=== PATIENT | female | born 2000 | race American Indian/Alaskan Native ===

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

== ENCOUNTER 2019-01-25 20:32 | Emergency (ER) | payer OTHER ==
--- NOTE | 2019-01-25 20:53 | Emergency Department Report ---
Blank Doc - Documentation Documentation: This is a 18-year-old female that presents with chest pain and SOB. This initial assessment/diagnostic orders/clinical plan/treatment(s) is/are subject to change based on patient's health status, clinical progression and re- assessment by fellow clinical providers in the ED. Further treatment and workup at subsequent clinical providers discretion. Patient/guardians urged not to elope from the ED as their condition may be serious if not clinically assessed and managed. Initial orders include: 1- Patient sent to [facility] for further evaluation and treatment 2- EKG 3- labs 4- CXR
[2019-01-25 21:16] LABS: Hematocrit 36.9 % (30.3-42.9); Hemoglobin 12.4 gm/dl (10.1-14.3); Mean Corpuscular HGB Conc 34 % (30-34); Mean Corpuscular Volume 86 fl (79-97); Platelet Count 324 K/mm3 (140-440); Red Blood Count 4.27 M/mm3 (3.65-5.03); Red Cell Distribution Width 14.2 % (13.2-15.2)
[2019-01-25 21:26] LABS: INR 0.92 (0.87-1.13)
[2019-01-25 21:34] LABS: BUN/Creatinine Ratio 14; Blood Urea Nitrogen 11 mg/dL (7-17); Calcium 9.1 mg/dL (8.4-10.2); Hemolysis Index 48
[2019-01-25 22:13] LABS: Band Neutrophils # (Manual) 0.1 K/mm3; Eosinophils % (Manual) 0 % (0.0-4.3); Platelet Estimate Consistent w Auto; RBC Morphology Normal; Total Cells Counted 100
--- NOTE | 2019-01-25 22:51 | XRay Report ---
PROCEDURE: XR CHEST ROUTINE 2V TECHNIQUE: PA and lateral chest radiographs were obtained. HISTORY: Chest Pain COMPARISONS: None. FINDINGS: Heart: Normal. Mediastinum/Vessels: Normal. Lungs/Pleural space: Normal. Bony thorax: No acute osseous abnormality. IMPRESSION: Normal examination. This document is electronically signed by Deyvi Santos MD., January 25 2019 10:49:57 PM ET
--- NOTE | 2019-01-26 02:21 | Emergency Department Report ---
ED Chest Pain HPI - General Chief Complaint: Chest Pain Stated Complaint: CHEST PAIN LEFT ARM SHOOTING PAIN Time Seen by Provider: 01/25/19 20:51 Source: patient Mode of arrival: Ambulatory Limitations: No Limitations - History of Present Illness Initial Comments: 18-year-old female presents to the ED for complaint of chest pain since yesterday. Patient states pain has been right and left-sided, radiating into bilateral arms, with associated mild shortness of breath. Denies fever, cough, nausea, vomiting, diaphoresis, leg pain or swelling. No aggravating or alleviating factors, pain is intermittent. MD Complaint: chest pain -: days(s) (2) Onset: during rest, during exertion Pain Location: substernal, left chest, right chest Pain Radiation: RUE, LUE Severity: moderate Severity scale (0 -10): 5 Quality: tightness, sharp Improves With: nothing Worsens With: nothing re: denies: nausea, vomting, diaphoresis, dyspnea Other Symptoms: denies: cough, fever, leg swelling - Related Data Previous Rx's Medication Instructions Recorded Last Taken Type Prochlorperazine [Compazine] 10 mg PO Q8HR #30 tablet 07/03/17 Unknown Rx Pseudoephedrine ER [Sudafed 12 Hr] 120 mg PO Q12HR PRN #24 tablet 07/03/17 Unknown Rx Naproxen [Naprosyn] 500 mg PO BID #20 tablet 01/26/19 Unknown Rx Allergies Allergy/AdvReac Type Severity Reaction Status Date / Time No Known Allergies Allergy Verified 01/25/19 20:37 Heart Score - HEART Score History: Slightly suspicious EKG: Normal Age: < 45 Risk factors: 1-2 risk factors Troponin: < normal limit HEART Score: 1 ED Review of Systems ROS: Stated complaint: CHEST PAIN LEFT ARM SHOOTING PAIN Other details as noted in HPI Comment: All other systems reviewed and negative Constitutional: denies: chills, fever Respiratory: shortness of breath. denies: cough Cardiovascular: chest pain Gastrointestinal: denies: nausea, vomiting Musculoskeletal: other (denies leg pain or swelling) ED Past Medical Hx - Social History Smoking Status: Current Every Day Smoker Substance Use Type: None - Medications Home Medications: Home Medications Medication Instructions Recorded Confirmed Last Taken Type Prochlorperazine [Compazine] 10 mg PO Q8HR #30 tablet 07/03/17 Unknown Rx Pseudoephedrine ER [Sudafed 12 Hr] 120 mg PO Q12HR PRN #24 tablet 07/03/17 Unknown Rx Naproxen [Naprosyn] 500 mg PO BID #20 tablet 01/26/19 Unknown Rx ED Physical Exam - General Limitations: No Limitations General appearance: alert, in no apparent distress, obese - Head Head exam: Present: atraumatic, normocephalic - Eye Eye exam: Present: normal appearance - ENT ENT exam: Present: mucous membranes moist - Neck Neck exam: Present: normal inspection - Respiratory Respiratory exam: Present: normal lung sounds bilaterally, chest wall tende rness. Absent: respiratory distress - Cardiovascular Cardiovascular Exam: Present: regular rate, normal rhythm - GI/Abdominal GI/Abdominal exam: Present: soft. Absent: distended, tenderness - Extremities Exam Extremities exam: Absent: pedal edema, calf tenderness - Neurological Exam Neurological exam: Present: alert, oriented X3 - Psychiatric Psychiatric exam: Present: normal affect, normal mood - Skin Skin exam: Present: warm, dry, intact, normal color. Absent: rash ED Course Vital Signs 01/25/19 01/25/19 01/26/19 20:43 20:51 01:15 Temperature 98.3 F 98.3 F Pulse Rate 100 H 117 H 77 Respiratory 18 18 20 Rate Blood Pressure 141/117 141/117 Blood Pressure 121/61 [Left] O2 Sat by Pulse 100 100 98 Oximetry 01/26/19 01/26/19 03:00 03:28 Temperature Pulse Rate 75 Respiratory 20 20 Rate Blood Pressure Blood Pressure 114/76 [Left] O2 Sat by Pulse 99 98 Oximetry ED Medical Decision Making - Lab Data Result diagrams: 01/25/19 20:58 01/25/19 20:58 - EKG Data -: EKG Interpreted by Fl EKG shows normal: sinus rhythm, axis, intervals, QRS complexes, ST-T waves Rate: normal - EKG Data Interpretation: no acute changes - Radiology Data Radiology results: report reviewed, image reviewed - Medical Decision Making - chest pain across entire chest radiating into bilateral arms - EKG normal, no ST changes - trop negative x 2 - d-dimer also negative - vitals normal - chest pain seems atypical in nature; also has some chest wall tenderness, will give rx for naprosyn - advised PCP f/u - return precautions given - Differential Diagnosis chest wall pain, ACS, PE, pneumonia Critical care attestation.: If time is entered above; I have spent that time in minutes in the direct care of this critically ill patient, excluding procedure time. ED Disposition Clinical Impression: Chest pain Disposition: TO HOME OR SELFCARE Is pt being admited?: No Condition: Stable Instructions: Chest Pain (ED) Prescriptions: Naproxen [Naprosyn] 500 mg PO BID #20 tablet Referrals: MALIK JEFFERY NP [Primary Care Provider] - 3-5 Days Time of Disposition: 03:01
[2019-01-26 04:03] VITALS: BP 114/76
== END 2019-01-26 04:03 | disposition home or self-care (01) ==
LOC: ED 20:32
DX: R07.89 Other chest pain (principal); R06.02 Shortness of breath; F17.200 Nicotine dependence, unspecified, uncomplicated; Z79.899 Other long term (current) drug therapy
CPT/HCPCS: 36415; 71046; 80048; 84484; 84703; 85007; 85025; 85379; 85610; 85730; 93005; 93010

== ENCOUNTER 2019-05-17 10:11 | Emergency (ER) | payer OTHER ==
[2019-05-17 11:17] VITALS: BP 121/74
--- NOTE | 2019-05-17 11:43 | Emergency Department Report ---
ED General Adult HPI - General Chief complaint: Upper Respiratory Infection Stated complaint: FLU LIKE SYM Time Seen by Provider: 05/17/19 11:25 Source: patient Mode of arrival: Ambulatory Limitations: No Limitations - History of Present Illness Severity scale (0 -10): 0 - Related Data Previous Rx's Medication Instructions Recorded Last Taken Type Prochlorperazine [Compazine] 10 mg PO Q8HR #30 tablet 07/03/17 Unknown Rx Pseudoephedrine ER [Sudafed 12 Hr] 120 mg PO Q12HR PRN #24 tablet 07/03/17 Unknown Rx Naproxen [Naprosyn] 500 mg PO BID #20 tablet 01/26/19 Unknown Rx ALBUTEROL Inhaler (OR & NICU) 2 puff IH Q4HR PRN #1 inhalation 05/17/19 Unknown Rx [ProAir HFA Inhaler] Ibuprofen [Motrin] 800 mg PO Q8HR PRN #30 tablet 05/17/19 Unknown Rx Penicillin V Potassium 500 mg PO TID #21 tablet 05/17/19 Unknown Rx predniSONE [Deltasone] 20 mg PO DAILY #15 tablet 05/17/19 Unknown Rx Allergies Allergy/AdvReac Type Severity Reaction Status Date / Time No Known Allergies Allergy Verified 01/25/19 20:37 ED Review of Systems ROS: Stated complaint: FLU LIKE SYM Other details as noted in HPI ED Past Medical Hx - Past Medical History Previous Medical History?: No - Surgical History Past Surgical History?: No - Social History Smoking Status: Never Smoker Substance Use Type: None - Medications Home Medications: Home Medications Medication Instructions Recorded Confirmed Last Taken Type Prochlorperazine [Compazine] 10 mg PO Q8HR #30 tablet 07/03/17 Unknown Rx Pseudoephedrine ER [Sudafed 12 Hr] 120 mg PO Q12HR PRN #24 tablet 07/03/17 Unknown Rx Naproxen [Naprosyn] 500 mg PO BID #20 tablet 01/26/19 Unknown Rx ALBUTEROL Inhaler (OR & NICU) 2 puff IH Q4HR PRN #1 inhalation 05/17/19 Unknown Rx [ProAir HFA Inhaler] Ibuprofen [Motrin] 800 mg PO Q8HR PRN #30 tablet 05/17/19 Unknown Rx Penicillin V Potassium 500 mg PO TID #21 tablet 05/17/19 Unknown Rx predniSONE [Deltasone] 20 mg PO DAILY #15 tablet 05/17/19 Unknown Rx ED Physical Exam - General Limitations: No Limitations ED Course Vital Signs 05/17/19 05/17/19 10:17 11:14 Temperature 98.0 F 98.0 F Pulse Rate 103 H 100 H Respiratory 20 18 Rate Blood Pressure 121/74 Blood Pressure 157/89 [Right] O2 Sat by Pulse 100 99 Oximetry ED Medical Decision Making - Medical Decision Making Discussed plan of care with patient Critical care attestation.: If time is entered above; I have spent that time in minutes in the direct care of this critically ill patient, excluding procedure time. ED Disposition Clinical Impression: Pharyngitis, Nasal congestion, Allergic rhinitis Disposition: TO HOME OR SELFCARE Is pt being admited?: No Does the pt Need Aspirin: No Condition: Stable Instructions: Allergies (ED), Pharyngitis (ED) Additional Instructions: return if worse Referrals: RUDOLPH CABRERAOWOSSO MD LIZ [Primary Care Provider] - 3-5 Days [facility] [Provider Group] - 3-5 Days [facility] [Provider Group] - 3-5 Days Time of Disposition: 11:41
--- NOTE | 2019-05-17 11:46 | Emergency Department Report ---
ED General Adult HPI - General Chief complaint: Upper Respiratory Infection Stated complaint: FLU LIKE SYM Time Seen by Provider: 05/17/19 11:25 Source: patient Mode of arrival: Ambulatory Limitations: No Limitations - History of Present Illness Initial comments: The patient presents to the emergency department with a chief complaint of a runny nose, scratchy throat, throat pain, congestion for the last 4-5 days. Patient states the symptoms started after returning from [facility]. Patient denies any chest pain, developing, headache. She denies having a fever home and states that the Mucinex was she's been taking for the last couple days is not helping. -: Gradual Severity scale (0 -10): 0 Consistency: constant Improves with: none Worsens with: none Associated Symptoms: denies other symptoms Treatments Prior to Arrival: none - Related Data Previous Rx's Medication Instructions Recorded Last Taken Type Prochlorperazine [Compazine] 10 mg PO Q8HR #30 tablet 07/03/17 Unknown Rx Pseudoephedrine ER [Sudafed 12 Hr] 120 mg PO Q12HR PRN #24 tablet 07/03/17 Unknown Rx Naproxen [Naprosyn] 500 mg PO BID #20 tablet 01/26/19 Unknown Rx ALBUTEROL Inhaler (OR & NICU) 2 puff IH Q4HR PRN #1 inhalation 05/17/19 Unknown Rx [ProAir HFA Inhaler] Cetirizine HCl [Zyrtec 10mg tab] 10 mg PO DAILY #20 tablet 05/17/19 Unknown Rx Fluticasone [Flonase] 1 spray NS QDAY #1 bottle 05/17/19 Unknown Rx Ibuprofen [Motrin] 800 mg PO Q8HR PRN #30 tablet 05/17/19 Unknown Rx Penicillin V Potassium 500 mg PO TID #21 tablet 05/17/19 Unknown Rx predniSONE [Deltasone] 20 mg PO DAILY #15 tablet 05/17/19 Unknown Rx Allergies Allergy/AdvReac Type Severity Reaction Status Date / Time No Known Allergies Allergy Verified 01/25/19 20:37 ED Review of Systems ROS: Stated complaint: FLU LIKE SYM Other details as noted in HPI ED Past Medical Hx - Past Medical History Previous Medical History?: No - Surgical History Past Surgical History?: No - Social History Smoking Status: Never Smoker Substance Use Type: None - Medications Home Medications: Home Medications Medication Instructions Recorded Confirmed Last Taken Type Prochlorperazine [Compazine] 10 mg PO Q8HR #30 tablet 07/03/17 Unknown Rx Pseudoephedrine ER [Sudafed 12 Hr] 120 mg PO Q12HR PRN #24 tablet 07/03/17 Unknown Rx Naproxen [Naprosyn] 500 mg PO BID #20 tablet 01/26/19 Unknown Rx ALBUTEROL Inhaler (OR & NICU) 2 puff IH Q4HR PRN #1 inhalation 05/17/19 Unknown Rx [ProAir HFA Inhaler] Cetirizine HCl [Zyrtec 10mg tab] 10 mg PO DAILY #20 tablet 05/17/19 Unknown Rx Fluticasone [Flonase] 1 spray NS QDAY #1 bottle 05/17/19 Unknown Rx Ibuprofen [Motrin] 800 mg PO Q8HR PRN #30 tablet 05/17/19 Unknown Rx Penicillin V Potassium 500 mg PO TID #21 tablet 05/17/19 Unknown Rx predniSONE [Deltasone] 20 mg PO DAILY #15 tablet 05/17/19 Unknown Rx ED Physical Exam - General Limitations: No Limitations ED Course Vital Signs 05/17/19 05/17/19 10:17 11:14 Temperature 98.0 F 98.0 F Pulse Rate 103 H 100 H Respiratory 20 18 Rate Blood Pressure 121/74 Blood Pressure 157/89 [Right] O2 Sat by Pulse 100 99 Oximetry Critical care attestation.: If time is entered above; I have spent that time in minutes in the direct care of this critically ill patient, excluding procedure time. ED Disposition Clinical Impression: Allergic rhinitis, Acute pharyngitis, Congestion of throat Disposition: DC-01 TO HOME OR SELFCARE Is pt being admited?: No Does the pt Need Aspirin: No Condition: Stable Instructions: Pharyngitis (ED), Allergies (ED) Additional Instructions: return if worse Prescriptions: predniSONE [Deltasone] 20 mg PO DAILY #15 tablet Fluticasone [Flonase] 1 spray NS QDAY #1 bottle Ibuprofen [Motrin] 800 mg PO Q8HR PRN #30 tablet PRN Reason: Pain Penicillin V Potassium 500 mg PO TID #21 tablet ALBUTEROL Inhaler (OR & NICU) [ProAir HFA Inhaler] 2 puff IH Q4HR PRN #1 inhalation PRN Reason: Shortness Of Breath Cetirizine HCl [Zyrtec 10mg tab] 10 mg PO DAILY #20 tablet Referrals: [facility] [Provider Group] - 3-5 Days [facility] [Provider Group] - 3-5 Days MOBILE HORACIO CABRERA MD [Primary Care Provider] - 3-5 Days Time of Disposition: 11:46
== END 2019-05-17 12:00 | disposition home or self-care (01) ==
LOC: ED 10:11
DX: J30.9 Allergic rhinitis, unspecified (principal); J02.9 Acute pharyngitis, unspecified; Z79.899 Other long term (current) drug therapy
CPT/HCPCS: 99282